=== PATIENT | male | born 1955 | race African-American/Black ===

== ENCOUNTER 2017-07-26 09:52 | Outpatient (CLI) | payer MEDICARE, MEDICAID ==
[2017-07-26] MEDS ORDERED: Iopamidol 370 76% 100 ML VIAL ONE (16:55)
--- NOTE | 2017-07-26 17:00 | CT ---
EXAM: ABDOMEN CT WITH CONTRAST PELVIC CT WITH CONTRAST 07/26/17 HISTORY: Colostomy care. COMPARISON: 03/12/16. TECHNIQUE: An abdomen and pelvic CT are performed with IV and enteric contrast. Coronal reformatted images are s ubmitted for interpretation. FINDINGS: Persistent opacification in the right lung base. The largest opacity measures 1.7 x 2.4 cm. Small aura ateral pleural effusions. Heart size is normal. No significant pericardial fluid. Descending thoracic aorta and abdominal aorta have a normal caliber. No periaortic fat stranding. Intra and extrahepatic portal vein is patent. Gallbladder is unremarkable. Symmetric attenuation of the psoas muscles. Liver, spleen, pancreas and adrenal glands have appropriate enhancement. There are nonspecific mildly enlarged periaortic and aortocaval lymph nodes. These lymph nodes are si milar to the previous examination. No gastrohepatic, retrocrural or periportal lymph adenopathy. No mesenteric mass, lymphadenopathy, free air or free fluid. There is a left lower quadrant colostomy . There is an associated parastomal hernia of mesenteric fat and lymph nodes. No associated bowel obs truction. Multiple normal caliber small bowel loops. Normal ileocecal junction. Appendix has a slight ly irregular appearance with minimal periappendiceal fat stranding. Findings are nonspecific for appe ndicitis. The possibility of an appendiceal tumor such as mucocele cannot be completely excluded. Cor relate clinically. There are a few scattered mildly enlarged right lower quadrant mesenteric lymph no dolores. [employer] Outreach Worker lymph node measures 1.5 x 0.7 cm. Schafer's pouch demonstrates diverticulosis. Symmetric enhancement of the kidneys. No obstructive uropathy. PELVIC CT: Enlarged prostate gland. Urinary bladder is unremarkable. No pelvic mass, lymphadenopathy, free air o r free fluid. There is nonspecific mildly enlarged bilateral inguinal lymph nodes. These lymph nodes still have a preserved fatty hilum. Small amount of fluid in the visualized left hemiscrotum. There are no lytic or blastic lesions in the osseous structures. IMPRESSION: 1. Chronic changes in the right lung base. Left sided colostomy with parastomal hernia mesenteri c fat. There are associated lymph nodes. 2. No evidence of bowel obstruction. 3. Slightly irregular appearing appendix without definite inflammatory change. The possibility o f an appendiceal tumor such as mucocele cannot be completely excluded. Correlate clinically. 4. Scattered diverticula in the abdomen and pelvis. Correlate for possible infectious, inflammat ory processes versus other malignant etiologies. Code T POS: [facility]
== END 2017-07-26 09:53 | disposition home or self-care (01) ==
LOC: CT 09:52
PROVIDERS: ATTEND Specialist
DX: Z48.815 Encounter for surgical aftercare following surgery on the digestive system (principal); J98.4 Other disorders of lung; K43.5 Parastomal hernia without obstruction or gangrene; K57.90 Diverticulosis of intestine, part unspecified, without perforation or abscess without bleeding; Z93.3 Colostomy status
CPT/HCPCS: 74177; 82565

== ENCOUNTER 2017-08-19 12:13 | Outpatient (CLI) | payer MEDICARE, MEDICAID ==
[2017-08-19 13:48] LABS: Hemoglobin 14.1 g/dL (14.0-18.0); Mean Corpuscular HGB CONC 32.5 g/dL (32.0-36.0); Mean Corpuscular Hemoglobin 30.5 pg (27.0-31.0); Mean Corpuscular Volume 93.8 fl (80.0-94.0); Mean Platelet Volume 7.7 fL (7.4-10.4); Platelet Count 172 thou/uL (130-400); RBC Distribution Width 14.2 % (11.5-14.5); Red Blood Cell (RBC) Count 4.64 mill/uL (4.70-6.10); White Blood Cell (WBC) Count 4.2 thou/uL (4.8-10.8)
[2017-08-19 13:50] LABS: INR-International Normal Ratio 1.1; PTT 31.9 SEC (22.9-36.1); Prothrombin Time 14.1 SEC (12.0-14.7)
[2017-08-19 14:18] LABS: Anion Gap 12 mmol/L (10-20); BUN (Urea Nitrogen) 17 mg/dL (8.4-25.7); Calc. Creatinine Clearance 0 mL/min (70-130); Calcium 10.8 mg/dL (7.8-10.44); Carbon Dioxide 28 mmol/L (23-31); Chloride 100 mmol/L (98-107); Estimated GFR-MDRD 82; Glucose 69 mg/dL (80-115); Potassium 3.9 mmol/L (3.5-5.1); Sodium 136 mmol/L (136-145)
[2017-08-19 14:19] LABS: Bilirubin Negative (Negative); Blood, Urine Negative (Negative); Clarity CLEAR (Clear); Glucose, Urine (Dipstick) 100 mg/dL (Negative); Leukocyte Negative (Negative); Nitrite Negative (Negative); Protein, Urine (Dipstick) Negative (Neg-Trace); Specific Gravity, Urine 1.017 (1.002-1.036); Urobilinogen 0.2 mg/dL (0.2-1.0); pH, Urine 5.5 (5.0-9.0)
[2017-08-19 14:23] LABS: Bacteria/HPF None Seen HPF (None Seen); Hyaline Casts/LPF 0-3 HYALINE CAST LPF (0-3 Hyaline); RBC/HPF 0-3 HPF (0-3); Squamous Epithelial None Seen HPF (0-3); WBC/HPF 0-3 HPF (0-3)
--- NOTE | 2017-08-20 23:40 | EKG ---
Test Reason : Blood Pressure : / mmHG Vent. Rate : 083 BPM Atrial Rate : 083 BPM P-R Int : 156 ms QRS Dur : 092 ms QT Int : 376 ms P-R-T Axes : 062 023 039 degrees QTc Int : 441 ms Normal sinus rhythm Nonspecific T wave abnormality Abnormal ECG When compared with ECG of 27-SEP-2016 08:11, Vent. rate has increased BY 32 BPM T wave inversion no longer evident in Anterior leads Confirmed by Petr ANDRE ([id number]) on 08/20/2017 11:39:34 PM Referred By: JOSHUA Confirmed By:Petr ANDRE
== END 2017-08-19 12:14 | disposition home or self-care (01) ==
LOC: LABBT 12:13
PROVIDERS: ATTEND Urology
DX: Z01.810 Encounter for preprocedural cardiovascular examination (principal); Z01.812 Encounter for preprocedural laboratory examination; R97.20 Elevated prostate specific antigen [PSA]
CPT/HCPCS: 80048; 81001; 84153; 85027; 85610; 85730; 87086; 93005; 93010

== ENCOUNTER 2017-08-29 06:30 | Day surgery (SDC) | payer MEDICARE, MEDICAID ==
[2017-08-19 12:31] VITALS: BMI 26.9
[2017-08-29] MEDS ORDERED: Ciprofloxacin 500 MG TAB PO SCH (07:30)
[2017-08-29] MEDS ORDERED: cefTRIAXone\\ROCEPHIN 1 GM, Syringe 0.4 ML in Sterile Water 9.6 ML SLOW IVP SCH (08:45)
[2017-08-29] MEDS ORDERED: Fentanyl 100 MCG/2 ML VIAL ONE ×2 (09:11)
[2017-08-29] MEDS ORDERED: Bupivacaine 0.25% HCL 30 ML VIAL ONE (09:59)
[2017-08-29] MEDS ORDERED: Propofol 200 MG/20 ML VIAL ONE (14:39)
--- NOTE | 2017-08-30 11:43 | OP ---
DATE OF PROCEDURE: 08/29/2017 SURGEON: Tray Hendrickson M.D. SERVICE: Urology. PREOPERATIVE DIAGNOSIS: Elevated PSA. POSTOPERATIVE DIAGNOSIS: Elevated PSA. PROCEDURE PERFORMED: Transperineal prostate biopsy. INDICATIONS FOR PROCEDURE: Mr. Womack is a 62-year-old black male, who had a very low LAR, possible A CT with extremely small rectal stump. He still have his prostate, but his PSA has been rising signif icantly. His PSA had initially been at 16 and then 25. I recommended a biopsy, but due to inability to reach his prostate to the rectum and significant sensitivity and tenderness in his rectum. I sta jaden it would be better to try and do a transperineal biopsy in the operating room from outside entire . I discussed the procedure with the patient and he has agreed to proceed forward. DESCRIPTION OF PROCEDURE: After identification of armband and verification of consent, the patient w as brought back to the operating room where he underwent general anesthesia with an LMA. He is place d in dorsal lithotomy position and prepped and draped in usual sterile fashion. Attempts at placing the rectal ultrasound probe through the rectal stump to image the prostate was unsuccessful. The rec ananda stump was too small, and I did not want to exert any excessive force as it could tear the rectal stump. Therefore, we elected to go with a transperineal biopsy. A flat ultrasound transducer was us ed on the perineum and the bulbar urethra was identified. This was tracked back into the prostate co uld be visualized. The prostate did exhibited extensive calcification, but there were no hypoechoic lesions that were immediately identifiable. Using a prostate biopsy gun and guiding it with the fing ers directly over the flat ultrasound probe, the ultrasound needle was seemed to go into the prostate , and cores were taken from both the left and right side, approximately three from the left and four from the right. It was difficult to ascertain exactly where the biopsies were being taken from as ag ain this was not done transrectally, but the ultrasound and biopsy were both done transperineally. A good cores were obtained. There was minimal bleeding and a dressing was applied to the patient's pe rineum. Afterwards, the patient was then taken out of lithotomy and awakened and taken to PACU for r ecovery in stable condition. COMPLICATIONS: None. ESTIMATED BLOOD LOSS: Minimal. RETAINED TUBES OR DRAINS: None. SPECIMENS: Core prostate biopsies x7. DISPOSITION: The patient will be discharged home and follow up with me in approximately a week to go over his biopsy results. His care will then be handled on an outpatient basis.
== END 2017-08-29 12:35 | disposition home or self-care (01) ==
LOC: SDC 06:30
PROVIDERS: ATTEND Urology
PROC: 0VB03ZX Excision of Prostate, Percutaneous Approach, Diagnostic (ICD-10-PCS; principal; 2017-08-29)
DX: C61 Malignant neoplasm of prostate (principal); N41.1 Chronic prostatitis; F32.9 Major depressive disorder, single episode, unspecified; G40.909 Epilepsy, unspecified, not intractable, without status epilepticus; E11.9 Type 2 diabetes mellitus without complications; I10 Essential (primary) hypertension; E78.5 Hyperlipidemia, unspecified; R97.20 Elevated prostate specific antigen [PSA]; Z79.84 Long term (current) use of oral hypoglycemic drugs; Z79.899 Other long term (current) drug therapy; Z93.3 Colostomy status; Z98.890 Other specified postprocedural states
CPT/HCPCS: 88305; A4216; J0696; J2704; J3010; S0020

== ENCOUNTER 2017-10-10 09:36 | Outpatient (CLI) | payer MEDICARE, MEDICAID ==
--- NOTE | 2017-10-10 13:42 | NM ---
WHOLE BODY BONE SCAN: Date: 10/10/17 HISTORY: Prostate cancer. RADIOPHARMACEUTICAL: 33 mCi technetium-99m MDP injected intravenously. FINDINGS: Increased uptake in the shoulders, elbows, wrists knees, and feet are consistent with degenerative ch anges. There is focal increased uptake in the lower shaft of the left tibia. No other abnormal areas of tracer localization are seen. Tracer excretion through the kidneys is within normal limits. IMPRESSION: Focally increased uptake in the left tibial shaft. Correlation with plain radiographs is recommended. POS: [facility]
== END 2017-10-10 09:37 | disposition home or self-care (01) ==
LOC: NM 09:36
PROVIDERS: ATTEND Urology
DX: C61 Malignant neoplasm of prostate (principal)
CPT/HCPCS: 78306; A9503

== ENCOUNTER 2017-10-29 08:54 | Outpatient (CLI) | payer MEDICARE, MEDICAID ==
[2017-10-29 10:14] LABS: Estimated GFR-MDRD - POC Greater than 90
--- NOTE | 2017-10-29 12:13 | MRI ---
MRI PROSTATE WITH AND WITHOUT CONTRAST: Date: 10/29/17 COMPARISON: None. HISTORY: Prostate cancer. TECHNIQUE: Multiplanar, multisequence MR images were obtained of the prostate without and with IV contrast. FINDINGS: There is hypertrophy of the central gland, consistent with BPH. The peripheral zone is heterogeneous in appearance with areas of high T2 signal and low T1 signal. No definite mass-like area of low T2 si gnal is seen within the peripheral zone of the prostate. The capsule of the prostate is irregular stefano ng the posterolateral aspects, right greater than left. There is a 1.3 cm area of possible disruption of the capsule near the neurovascular bundle on the right. No abnormal low T2 signal is seen in this location and there is no evidence of restricted diffusion or low signal on the ADC map in this locat ion. No obvious focal mass is seen within the central gland. No abnormal signal is seen within the prostat e on the diffusion sequence or ADC map. Seminal vesicles appear intact. A small amount of free fluid is seen in the pelvis. No pelvic adenopa thy is seen. There are scattered diverticula in the colon. IMPRESSION: 1. PI-RADS Category 1 - Very low likelihood that a clinically significant cancer is present. 2. Nonspecific apparent disruption of the posterior aspect of the prostate capsule. This is immediat trupti adjacent to the neurovascular bundle on the right. POS: [facility]
== END 2017-10-29 08:55 | disposition home or self-care (01) ==
LOC: TBSIIMAG 08:54
PROVIDERS: ATTEND Urology
DX: C61 Malignant neoplasm of prostate (principal)
CPT/HCPCS: 72197; 82565

== ENCOUNTER 2017-10-29 11:25 | Outpatient (CLI) | payer MEDICARE, MEDICAID ==
--- NOTE | 2017-10-29 13:05 | RAD ---
2 VIEWS LEFT TIBIA AND FIBULA: Date: 10/29/17 HISTORY: Prostate cancer. COMPARISON: None. FINDINGS: Remote injury involving the distal fibula diaphysis and mid tibia diaphysis. At least four separate s crews are noted in the tibia. No perihardware lucency. No lytic or blastic lesions. No obvious pathol ogic fractures. IMPRESSION: Chronic changes. POS: [facility]
== END 2017-10-29 11:26 | disposition home or self-care (01) ==
LOC: RAD 11:25
PROVIDERS: ATTEND Family Medicine
DX: C61 Malignant neoplasm of prostate (principal)

== ENCOUNTER 2017-12-09 14:08 | Outpatient (CLI) | payer MEDICARE, MEDICAID | END 2017-12-09 14:09 | disposition home or self-care (01) | LOC: BICRAD 14:08 | PROVIDERS: ATTEND Internal Medicine Pulmonary Disease | DX: R06.00 Dyspnea, unspecified (principal) | CPT/HCPCS: 71046 ==

== ENCOUNTER 2018-07-09 10:37 | Outpatient (CLI) | payer MEDICARE, MEDICAID ==
--- NOTE | 2018-07-09 11:31 | RAD ---
CHEST TWO VIEWS: HISTORY: Dyspnea. COMPARISON: 12/09/2017 FINDINGS: The cardiac silhouette and pulmonary vasculature are unremarkable. Coarsened interstitial prominence throughout each lower lobe, right greater than left, is similar in appearance to the previous exam. No lobar consolidation, pneumothorax, or pleural fluid. IMPRESSION: Interstitial scarring and other chronic type findings appear stable. POS: [facility]
== END 2018-07-09 10:38 | disposition home or self-care (01) ==
LOC: RAD 10:37
PROVIDERS: ATTEND Internal Medicine Pulmonary Disease
DX: R06.00 Dyspnea, unspecified (principal); J98.4 Other disorders of lung
CPT/HCPCS: 71046

== ENCOUNTER 2018-12-09 07:23 | Inpatient (IN) | payer MEDICARE, MEDICAID ==
[2018-12-09] MEDS ORDERED: Ketorolac Tromethamine 30 MG/ML VIAL ONE (08:29)
[2018-12-09] MEDS ORDERED: Sodium Chloride 0.9% 100 ML ONE (08:30)
[2018-12-09] MEDS ORDERED: cefOXitin 2 GM VIAL ONE (08:30)
[2018-12-09 09:24] LABS: Anion Gap 12 mmol/L (10-20); BUN (Urea Nitrogen) 11 mg/dL (8.4-25.7); Calc. Creatinine Clearance 65 mL/min (70-130); Calcium 10.6 mg/dL (7.8-10.44); Carbon Dioxide 26 mmol/L (23-31); Chloride 102 mmol/L (98-107); Estimated GFR-MDRD 68; Glucose 87 mg/dL (80-115); Potassium 4.3 mmol/L (3.5-5.1); Sodium 136 mmol/L (136-145)
[2018-12-09 09:37] LABS: Band 4 % (5-11); Eosinophils 5 % (0-10); Hemoglobin 13.6 g/dL (14.0-18.0); Lymphocytes 21 % (21-51); MDiff Complete? YES; Mean Corpuscular HGB CONC 34.5 g/dL (32.0-36.0); Mean Corpuscular Hemoglobin 31.7 pg (27.0-31.0); Mean Corpuscular Volume 91.8 fL (78.0-98.0); Mean Platelet Volume 7.4 fL (7.4-10.4); Monocytes 9 % (0-10); Neutrophil 60 % (42-75); Platelet Count 150 thou/uL (130-400); RBC Distribution Width 13.3 % (11.5-14.5); RBC Morphology Normal; White Blood Cell (WBC) Count 4.2 thou/uL (4.8-10.8)
[2018-12-09] MEDS ORDERED: Bupivacaine/Epinephrine 0.25% 30 ML VIAL ONE (09:46)
[2018-12-09] MEDS ORDERED: Lidocaine 2% Jelly 5 ML TUBE ONE (09:49)
[2018-12-09] MEDS ORDERED: Fentanyl 100 MCG/2 ML VIAL ONE ×3 (09:49→14:28)
[2018-12-09] MEDS ORDERED: Phenylephrine HCL 10 MG/ML VIAL ONE (10:31)
[2018-12-09] MEDS ORDERED: Ondansetron PF 4 MG/2 ML Vial ONE (11:16)
[2018-12-09] MEDS ORDERED: PROPOFOL 200 MG/20 ML VIAL ONE (11:16)
[2018-12-09] MEDS ORDERED: Rocuronium Bromide 10 MG/ML (10ML VIAL) ONE (11:16)
[2018-12-09] MEDS ORDERED: ePHEDrine 50 MG/ML VIAL ONE (11:16)
[2018-12-09] MEDS ORDERED: Glycopyrrolate 0.2 MG/ML 5 ML SYRINGE ONE (11:16)
[2018-12-09] MEDS ORDERED: PHENYLEPHRINE-NS 100 MCG/ML 10 ML SYRINGE ONE (11:16)
[2018-12-09] MEDS ORDERED: Lidocaine 1% PF 5 ML VIAL ONE (11:16)
[2018-12-09] MEDS ORDERED: Ondansetron HCl/PF 4 MG/2 ML Vial IVP PRN (13:08)
[2018-12-09] MEDS ORDERED: Promethazine HCl 25 MG/ML VIAL SLOW IVP PRN (13:08)
[2018-12-09] MEDS ORDERED: Promethazine HCl 25 MG/ML VIAL IM PRN ×2 (13:08→14:16)
[2018-12-09] MEDS ORDERED: Insulin Regular 300 UNITS/3 ML VIAL SC PRN (14:16)
[2018-12-09] MEDS ORDERED: Morphine 2 MG/ML SYRINGE SLOW IVP PRN (14:16)
[2018-12-09] MEDS ORDERED: Ondansetron PF 4 MG/2 ML Vial IVP PRN (14:16)
[2018-12-09] MEDS ORDERED: hydrALAZINE 20 MG/ML VIAL SLOW IVP PRN (14:16)
[2018-12-09] MEDS ORDERED: Morphine 4 MG/ML VIAL SLOW IVP PRN (14:16)
[2018-12-09 15:56] VITALS: BMI 25.8
--- NOTE | 2018-12-09 16:52 | EKG ---
Test Reason : PREOP Blood Pressure : / mmHG Vent. Rate : 091 BPM Atrial Rate : 091 BPM P-R Int : 154 ms QRS Dur : 094 ms QT Int : 284 ms P-R-T Axes : 061 -16 057 degrees QTc Int : 349 ms Normal sinus rhythm Nonspecific T wave abnormality Abnormal ECG When compared with ECG of 19-AUG-2017 13:23, QT has shortened Confirmed by DR. Joe ZAMUDIO ([id number]) on 12/09/2018 4:52:28 PM Referred By: CALOS Confirmed By:DR. Joe ZAMUDIO
[2018-12-09] MEDS: Acetaminophen 1,000 MG in Premix Bag 1 BAG IVPB SCH (17:56)
[2018-12-09] MEDS: Sodium Chloride 0.9% 1,000 ML IV SCH ×2 (17:56→20:03)
[2018-12-09] MEDS: Ketorolac Tromethamine 30 MG/ML VIAL IVP SCH (17:57)
[2018-12-09] MEDS: Famotidine 20 MG TAB PO SCH (20:04)
[2018-12-09] MEDS: Famotidine/PF 20 mg/2ml Vial SLOW IVP SCH (20:05)
[2018-12-10] MEDS: Acetaminophen 1,000 MG in Premix Bag 1 BAG IVPB SCH ×3 (00:01→13:03)
[2018-12-10] MEDS: Ketorolac Tromethamine 30 MG/ML VIAL IVP SCH ×5 (00:01→23:25)
--- NOTE | 2018-12-10 03:16 | OP ---
DATE OF PROCEDURE: 12/09/2018 PREOPERATIVE DIAGNOSIS: Large symptomatic parastomal hernia. POSTOPERATIVE DIAGNOSIS: Large symptomatic parastomal hernia. OPERATION PERFORMED: Laparoscopic repair of parastomal hernia with Sugarbaker technique using Ventralex mesh and Parietex mesh patch. ANESTHESIA: General endotracheal. 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 He had a colostomy created at some point in the past by an unknown physician in an unknown location for unknown reasons. He appears to have severe scarring of his rectal area and it is suspected that he has no residual rectal muscular function. For this reason, I have recommended against colostomy reversal. The patient has stated, however, that he has significant pain associated with his parastomal hernia and for this reason, he was taken to the operating room at this time for repair. DESCRIPTION OF PROCEDURE: Informed consent was obtained. The patient was taken to the operating room, where general endotracheal anesthesia was obtained with the patient in supine position. A sterile occlusive dressing was applied over the colostomy. Abdomen was prepped with ChloraPrep and draped in sterile fashion. Local anesthetic was infiltrated using 0.25% Marcaine with epinephrine, and a 5-mm right mid abdominal incision was created, through which a Veress needle was passed into the peritoneal cavity and pneumoperitoneum was established using carbon dioxide up to a pressure of 15 mmHg. 5-mm trocar port was passed through the same incision. Laparoscopic camera was passed through this port. Under direct vision, two additional ports were placed including a 12-mm right upper quadrant port and a 5-mm right lower quadrant port. Attention was turned to the intraabdominal contents. There were significant omental adhesions to the anterior abdominal wall. He had had a prior low midline abdominal incision. These adhesions were all meticulously taken down with LigaSure device. Dissection was carried over to the colostomy. There were significant omental adhesions to the abdominal wall near the colostomy and to the colon itself. There were adhesions inferior to this in the left lower quadrant as well. I spent a long period of time meticulously mobilizing all adhesions and clearing the anterior abdominal wall on all sides of the colostomy. I dissected all omentum off the colon, such that all that was proceeding through the colostomy opening was the colon and its mesentery. Hemostasis was meticulous during this. There was a large obvious hernia defect that was primarily inferior to the colon protruding through it. I closed the defect using four interrupted sutures of 0 Ethibond placed with the GraNee needle. This provided excellent closure of the defect while still allowing ample room for the colon and its mesentery. I then obtained an 11-cm Ventralex mesh patch and a 6-cm Parietex mesh patch. I trimmed all unnecessary mesh material away from the backside of the Parietex and sewed it to one edge of the Ventralex, such that the coated portion of the Parietex was on the anterior aspect of the mesh patch on the same side as the uncoated polypropylene. The mesh was then passed into the abdominal cavity. I positioned the coated Parietex against the colon and then secured the mesh to the anterior abdominal wall using the SecureStrap device on three sides, leaving the lateral aspect open for the colon to proceed through. After fixing the mesh ideally with the SecureStrap device, I fixed the mesh in place with 3 interrupted full-thickness transfascial sutures of 0 Ethibond. One of these was medial to the ostomy, one was superior, and one was inferior. Again, the lateral aspect was left open for the colon to proceed through. The fascial defect at the 12-mm port site was closed with 0 Vicryl suture using GraNee needle. The abdominal contents were inspected one final time for hemostasis. All ports and instruments were removed under direct vision. Pneumoperitoneum was carefully evacuated. 0.25% Marcaine with epinephrine was infiltrated at each port site, and skin edges were approximated with 4-0 Monocryl subcuticular suture. Dermabond was placed externally. Colostomy appliance was reapplied. There were no complications. The patient tolerated the procedure well and was taken to recovery room in stable condition. Job ID: [id number]
[2018-12-10] MEDS: Sodium Chloride 0.9% 1,000 ML IV SCH ×3 (06:16→16:22)
[2018-12-10 06:54] LABS: Hemoglobin 11.8 g/dL (14.0-18.0); Mean Corpuscular HGB CONC 33.7 g/dL (32.0-36.0); Mean Corpuscular Hemoglobin 31.1 pg (27.0-31.0); Mean Corpuscular Volume 92.4 fL (78.0-98.0); Mean Platelet Volume 7.6 fL (7.4-10.4); Platelet Count 127 thou/uL (130-400); RBC Distribution Width 13.4 % (11.5-14.5); Red Blood Cell (RBC) Count 3.78 mill/uL (4.70-6.10); White Blood Cell (WBC) Count 3.9 thou/uL (4.8-10.8)
[2018-12-10 07:19] LABS: Anion Gap 9 mmol/L (10-20); BUN (Urea Nitrogen) 9 mg/dL (8.4-25.7); Calc. Creatinine Clearance 95 mL/min (70-130); Carbon Dioxide 23 mmol/L (23-31); Chloride 107 mmol/L (98-107); Estimated GFR-MDRD Greater than 90; Glucose 97 mg/dL (80-115); Sodium 135 mmol/L (136-145)
[2018-12-10 08:03] LABS: Band 5 % (5-11); Eosinophils 3 % (0-10); Lymphocytes 8 % (21-51); MDiff Complete? YES; Monocytes 11 % (0-10); Neutrophil 70 % (42-75); Platelet Morphology Comment Appears Decreased; Polychromasia SLIGHT = 2-3 cells (100X) (0-2/hpf); Reactive Lymphocytes 2 % (0-10); Small Platelets SLIGHT
[2018-12-10] MEDS: Enoxaparin Sodium 40 MG/0.4 ML SYRINGE SC SCH (08:38)
[2018-12-10] MEDS: Famotidine 20 MG TAB PO SCH ×2 (08:38→20:53)
[2018-12-10] MEDS ORDERED: Prevnar 13-Val Conj/PF 0.5 ML SYRINGE IM ONE (09:00)
[2018-12-10] MEDS: Famotidine/PF 20 mg/2ml Vial SLOW IVP SCH ×2 (10:07→20:54)
[2018-12-10] MEDS ORDERED: Fluticasone Propionate Nasal Spray 16 gm Bottle NASAL PRN (14:30)
[2018-12-10] MEDS ORDERED: HYDROcodone/Acetaminophen 7.5/325 mg Tablet PO PRN ×2 (18:00)
[2018-12-10] MEDS: metFORMIN 500 MG TAB PO SCH (20:53)
[2018-12-10] MEDS ORDERED: Atorvastatin Calcium 10 MG TAB PO SCH (21:00)
[2018-12-10] MEDS ORDERED: Divalproex Sodium DR 500 MG TAB PO SCH (21:00)
[2018-12-10] MEDS ORDERED: ILOPERIDONE 12 MG PO SCH (21:00)
[2018-12-10] MEDS ORDERED: Loratadine 10 MG TAB PO SCH (21:00)
[2018-12-10] MEDS ORDERED: traZODone HCl 150 MG TAB PO SCH (21:00)
[2018-12-11] MEDS: Ketorolac Tromethamine 30 MG/ML VIAL IVP SCH ×2 (06:33→11:45)
--- NOTE | 2018-12-11 06:35 | PRG ---
DATE OF SERVICE: 12/10/2018 SUBJECTIVE: Mr. Womack is postoperative day #1 from laparoscopic repair of parastomal hernia. He has no complaints. He is ambulating well. His primary complaint is that he had been hungry. He has had liquid stool from his ostomy and has urinated well today. OBJECTIVE: VITAL SIGNS: On examination, he is afebrile. Pulse is 74 and regular, blood pressure 157/80. LUNGS: Clear to auscultation. CARDIAC: Regular rate and rhythm. ABDOMEN: Soft with normoactive bowel sounds. Laparoscopic incisions are healing nicely. Ostomy has liquid stool output. LABORATORY DATA: CBC is unremarkable with a hemoglobin of 11.8, white blood cell count of 3.8. His chemistry panel revealed no significant abnormalities. ASSESSMENT: The patient is doing well following laparoscopic repair of his parastomal hernia. PLAN: Plan is to advance him to a solid diet. If he appears to be doing well with this tomorrow, then I would anticipate discharge at that time. Job ID: [id number]
[2018-12-11] MEDS: Sodium Chloride 0.9% 1,000 ML IV SCH ×2 (07:36→11:45)
[2018-12-11] MEDS: metFORMIN 500 MG TAB PO SCH (08:46)
[2018-12-11] MEDS: Famotidine 20 MG TAB PO SCH (08:47)
[2018-12-11] MEDS: Enoxaparin Sodium 40 MG/0.4 ML SYRINGE SC SCH (08:48)
[2018-12-11] MEDS: Famotidine/PF 20 mg/2ml Vial SLOW IVP SCH (08:49)
[2018-12-11] MEDS ORDERED: Amlodipine 5 MG TAB PO SCH (09:00)
[2018-12-11] MEDS ORDERED: Empagliflozin [Jardiance] 10 MG TAB PO SCH (09:00)
[2018-12-11] MEDS ORDERED: Lisinopril/Hydrochlorothiazide 20 mg/12.5 mg Tablet PO SCH (09:00)
[2018-12-11] MEDS ORDERED: Tamsulosin HCl 0.4 MG CAP PO SCH (09:00)
[2018-12-11 16:38] VITALS: BP 147/84; TEMP 98.4
[2018-12-17] MEDS ORDERED: Dulaglutide [Trulicity] 0.5 ML SC SCH (09:00)
== END 2018-12-11 17:46 | disposition home or self-care (01) | DRG 337 ==
LOC: SURG A 07:45
PROVIDERS: ADMIT Specialist; ATTEND Specialist
PROC: 0WUF4JZ Supplement Abdominal Wall with Synthetic Substitute, Percutaneous Endoscopic Approach (ICD-10-PCS; principal; 2018-12-09)
PROC: 0DNW4ZZ Release Peritoneum, Percutaneous Endoscopic Approach (ICD-10-PCS; 2018-12-09)
DX: K43.5 Parastomal hernia without obstruction or gangrene (principal); K66.0 Peritoneal adhesions (postprocedural) (postinfection)
CPT/HCPCS: 36415; 36416; 80048; 85025; 93005; 93010; C1781; J0131; J0694; J1885; J2001; J2270; J2370; J2405; J2704; J3010; J3490

== ENCOUNTER 2019-01-28 10:25 | Outpatient (CLI) | payer MEDICARE, MEDICAID ==
[2019-01-28] MEDS ORDERED: Sodium Chloride 0.9% 15 ML NEB ONE (11:11)
== END 2019-01-28 10:26 | disposition home or self-care (01) ==
LOC: WCC 10:25
PROVIDERS: ATTEND Family Medicine
DX: E11.9 Type 2 diabetes mellitus without complications (principal); Z93.3 Colostomy status
CPT/HCPCS: 36416; A4218

== ENCOUNTER 2023-04-02 08:27 | Outpatient (CLI) | payer MEDICARE, MEDICAID | END 2023-04-02 08:28 | disposition home or self-care (01) | LOC: RAD 08:27 | PROVIDERS: ATTEND Internal Medicine Critical Care Medicine | DX: R06.00 Dyspnea, unspecified (principal) | CPT/HCPCS: 71046 ==

== ENCOUNTER 2024-07-20 08:21 | Outpatient (CLI) | payer MEDICARE, MEDICAID | END 2024-07-20 08:22 | disposition home or self-care (01) | LOC: BICRAD 08:21 | PROVIDERS: ATTEND Internal Medicine Critical Care Medicine | DX: R06.00 Dyspnea, unspecified (principal); Z00.00 Encounter for general adult medical examination without abnormal findings; Z11.59 Encounter for screening for other viral diseases; E11.9 Type 2 diabetes mellitus without complications | CPT/HCPCS: 36415; 71046; 80048; 80061; 82043; 85025; 86803 ==

== ENCOUNTER 2024-07-25 07:51 | Inpatient (IN) | payer MEDICARE, MEDICAID ==
[2024-07-25] MEDS ORDERED: Labetalol HCl 100 MG/20 ML VIAL ONE (09:07)
[2024-07-25] MEDS ORDERED: Potassium Bicarbonate/Cit Ac 20 MEQ TAB ONE (10:14)
[2024-07-25 10:42] LABS: Troponin I 0.164 ng/mL (< 0.028)
[2024-07-25] MEDS ORDERED: Nitroglycerin 0.4 MG TAB (25 Tab Bottle) SL PRN (11:45)
[2024-07-25] MEDS ORDERED: Dextrose 5% in Water 1,000 ML IV PRN (11:46)
[2024-07-25] MEDS ORDERED: Dextrose 50% Abboject 50 ML SYRINGE SLOW IVP PRN (11:46)
[2024-07-25] MEDS ORDERED: Glucagon 1 MG/ML KIT IM PRN (11:46)
[2024-07-25] MEDS ORDERED: Ipratropium/Albuterol 3 ML NEB NEB PRN (11:50)
[2024-07-25] MEDS ORDERED: hydrALAZINE 20 MG/ML VIAL SLOW IVP PRN (11:50)
[2024-07-25 12:47] LABS: Lactic Acid 1.36 mmol/L (0.5-2.2)
[2024-07-25] MEDS ORDERED: Aspirin Chewable 81 MG TAB ONE (12:47)
[2024-07-25] MEDS ORDERED: Ipratropium/Albuterol 3 ML NEB ONE (12:47)
[2024-07-25] MEDS ORDERED: cefTRIAXone (ROCEPHIN) 2 GM VIAL ONE (12:47)
[2024-07-25] MEDS ORDERED: Amlodipine 5 MG TAB ONE (12:51)
[2024-07-25] MEDS ORDERED: Azithromycin 500 MG VIAL ONE (12:51)
[2024-07-25] MEDS: Amlodipine 5 MG TAB PO SCH ×2 (12:58→21:20)
[2024-07-25] MEDS: cefTRIAXone\\ROCEPHIN 2 GM in Sodium Chloride 0.9% 100 ML IVPB SCH (12:59)
[2024-07-25] MEDS: Aspirin 81 mg Enteric Coated Tablet PO SCH (12:59)
[2024-07-25] MEDS: Ipratropium/Albuterol 3 ML NEB NEB SCH (13:32)
[2024-07-25] MEDS: Azithromycin 500 MG in Sodium Chloride 0.9% 250 ML 250 ML IVPB SCH (13:34)
[2024-07-25] MEDS: metroNIDAZOLE 500 MG TAB PO SCH (15:00)
[2024-07-25] MEDS: Budesonide 0.5 MG/2 ML NEB INH SCH (18:47)
[2024-07-25 21:18] VITALS: BMI 28.3
[2024-07-25] MEDS: Tamsulosin HCl 0.4 MG CAP PO SCH (21:25)
[2024-07-25] MEDS: Brimonidine Tartrate 0.2% Ophth Soln 5 ml Bottle EA EYE SCH (22:28)
[2024-07-25] MEDS: guaiFENesin/Codeine 200 mg/20 mg 10 ml Cup PO PRN (23:33)
[2024-07-25 23:56] LABS: Influenza A by NAA Not Detected (NotDetected); Influenza B by NAA Not Detected (NotDetected); SARS-CoV-2 NAA Rapid Test Not Detected (NotDetected)
[2024-07-26 05:24] LABS: Hematocrit 32.8 % (42.0-52.0); Hemoglobin 10.9 g/dL (14.0-18.0); Mean Corpuscular HGB CONC 33.2 g/dL (32.0-36.0); Mean Corpuscular Hemoglobin 30.4 pg (27.0-31.0); Mean Corpuscular Volume 91.6 fL (78.0-98.0); Mean Platelet Volume 10.9 fL (7.4-10.4); Platelet Count 115 10x3/uL (130-400); RBC Distribution Width 14.8 % (11.5-14.5); Red Blood Cell (RBC) Count 3.58 mill/uL (4.70-6.10)
[2024-07-26 05:26] LABS: INR-International Normal Ratio 1.4
[2024-07-26 05:27] LABS: PTT 46.9 sec (22.9-36.1)
[2024-07-26 05:44] LABS: Band 36 % (5-11); Eosinophils 1 % (0-10); Lymphocytes 8 % (21-51); Metamyelocyte 1 % (0-0); Monocytes 11 % (0-10); Neutrophil 43 % (42-75); Platelet Adequacy Comment Platelets Decreased; Polychromasia SLIGHT = 2-3 cells HPF (0-2)
[2024-07-26 06:06] LABS: ALT (SGPT) 17 U/L (8-55); AST (SGOT) 57 U/L (5-34); Albumin 1.8 g/dL (3.4-4.8); Alkaline Phosphatase 55 U/L (40-110); Anion Gap 9 mmol/L (10-20); BUN (Urea Nitrogen) 25 mg/dL (8.4-25.7); Bilirubin, Total 0.2 mg/dL (0.2-1.2); Calc. Creatinine Clearance 68 mL/min (70-130); Calcium 9.2 mg/dL (7.8-10.44); Carbon Dioxide 21 mmol/L (23-31); Chloride 111 mmol/L (98-107); Estimated GFR 64; Globulin 4.4 g/dL (2.4-3.5); Glucose 117 mg/dL (80-115); Magnesium 1.7 mg/dL (1.6-2.6); Phosphorus 2.7 mg/dL (2.3-4.7); Potassium 3.2 mmol/L (3.5-5.1); Protein, Total 6.2 g/dL (5.8-8.1); Sodium 138 mmol/L (136-145)
[2024-07-26 06:07] LABS: Troponin I 0.047 ng/mL (< 0.028)
[2024-07-26] MEDS ORDERED: Electrolyte Replacement Protocol 1 EACH FS SCH (08:48)
[2024-07-26] MEDS: Aspirin 81 mg Enteric Coated Tablet PO SCH (09:44)
[2024-07-26] MEDS: OLANZapine 5 MG TAB PO SCH (09:45)
[2024-07-26] MEDS: Enoxaparin 30 MG (0.3 mL) SYRINGE SC SCH (09:45)
[2024-07-26] MEDS: Magnesium 2 GM/50 ML(in water) 2 GM in Premix 1 BAG IVPB SCH (12:52)
[2024-07-26] MEDS: Potassium Chloride 20 MEQ TAB PO SCH (12:56)
[2024-07-26] MEDS ORDERED: Divalproex Sodium 500 MG ER.TAB PO SCH (21:00)
[2024-07-26] MEDS: Divalproex Sodium 500 MG ER.TAB PO SCH (21:37)
[2024-07-27 05:30] LABS: Hematocrit 31.9 % (42.0-52.0); Hemoglobin 10.3 g/dL (14.0-18.0); Mean Corpuscular HGB CONC 32.3 g/dL (32.0-36.0); Mean Corpuscular Hemoglobin 29.7 pg (27.0-31.0); Mean Corpuscular Volume 91.9 fL (78.0-98.0); Platelet Count 118 10x3/uL (130-400); RBC Distribution Width 15.1 % (11.5-14.5); Red Blood Cell (RBC) Count 3.47 mill/uL (4.70-6.10)
[2024-07-27 05:41] LABS: Anion Gap 10 mmol/L (10-20); BUN (Urea Nitrogen) 25 mg/dL (8.4-25.7); Calc. Creatinine Clearance 67 mL/min (70-130); Calcium 8.7 mg/dL (7.8-10.44); Carbon Dioxide 20 mmol/L (23-31); Chloride 110 mmol/L (98-107); Estimated GFR 63; Glucose 208 mg/dL (80-115); Magnesium 2.1 mg/dL (1.6-2.6); Potassium 3.4 mmol/L (3.5-5.1); Sodium 137 mmol/L (136-145)
[2024-07-27] MEDS: Insulin Regular, Human 100 UNIT/ML 10 ML VIAL SC PRN (06:20)
[2024-07-27 06:24] LABS: Band 36 % (5-11); Burr Cells MODERATE= 6-15 cells HPF (0-1); Lymphocytes 1 % (21-51); Macrocytosis SLIGHT = 6-15 cells HPF (0-5); Metamyelocyte 1 % (0-0); Monocytes 9 % (0-10); Neutrophil 53 % (42-75); Platelet Adequacy Comment Platelets Normal; Poikilocytosis MODERATE=16-30 cells HPF (0-5); Polychromasia SLIGHT = 2-3 cells HPF (0-2); Smudge Cells 9.9 %; Tear Drops SLIGHT = 2-5 cells HPF (0-1)
[2024-07-27] MEDS: Potassium Chloride 20 MEQ TAB PO SCH (08:17)
[2024-07-27] MEDS: Azithromycin 250 MG TAB PO SCH (11:55)
[2024-07-27] MEDS: Amlodipine 5 MG TAB PO SCH (20:52)
[2024-07-28 04:28] LABS: #Basophils 0.05 10x3/uL (0.0-0.2); %Basophils 0.9 % (0.0-1.0); %Eosinophils 1.9 % (0.0-10.0); %Lymphocytes 11.9 % (21.0-51.0); %Monocytes 15.9 % (0.0-10.0); %Neutrophils 68.1 % (42.0-75.0); Anion Gap 12 mmol/L (10-20); BUN (Urea Nitrogen) 17 mg/dL (8.4-25.7); Calc. Creatinine Clearance 75 mL/min (70-130); Calcium 9.2 mg/dL (7.8-10.44); Carbon Dioxide 21 mmol/L (23-31); Chloride 109 mmol/L (98-107); Estimated GFR 72; Glucose 129 mg/dL (80-115); Hematocrit 36.2 % (42.0-52.0); Hemoglobin 11.7 g/dL (14.0-18.0); Mean Corpuscular HGB CONC 32.3 g/dL (32.0-36.0); Mean Corpuscular Hemoglobin 30.7 pg (27.0-31.0); Mean Platelet Volume 9.9 fL (7.4-10.4); Platelet Count 138 10x3/uL (130-400); Red Blood Cell (RBC) Count 3.81 mill/uL (4.70-6.10); Sodium 138 mmol/L (136-145)
[2024-07-28] MEDS: Enoxaparin 40 MG (0.4 mL) SYRINGE SC SCH (07:41)
[2024-07-28] MEDS: Lisinopril 20 MG TAB PO SCH (08:56)
[2024-07-28] MEDS: Loratadine 10 MG TAB PO SCH (08:56)
[2024-07-28] MEDS ORDERED: Amlodipine 5 MG TAB PO SCH (09:00)
[2024-07-28] MEDS: Amlodipine 5 MG TAB PO SCH (09:07)
[2024-07-28] MEDS: Insulin Regular, Human 100 UNIT/ML 10 ML VIAL SC PRN (21:34)
[2024-07-29 09:00] LABS: Hematocrit 37.1 % (42.0-52.0); Hemoglobin 12.3 g/dL (14.0-18.0); Mean Corpuscular HGB CONC 33.2 g/dL (32.0-36.0); Mean Corpuscular Hemoglobin 29.6 pg (27.0-31.0); Mean Corpuscular Volume 89.4 fL (78.0-98.0); Mean Platelet Volume 9.9 fL (7.4-10.4); Platelet Count 176 10x3/uL (130-400); RBC Distribution Width 14.7 % (11.5-14.5); Red Blood Cell (RBC) Count 4.15 mill/uL (4.70-6.10)
[2024-07-29 09:14] LABS: Anion Gap 12 mmol/L (10-20); BUN (Urea Nitrogen) 14 mg/dL (8.4-25.7); Calc. Creatinine Clearance 92 mL/min (70-130); Calcium 9.5 mg/dL (7.8-10.44); Carbon Dioxide 27 mmol/L (23-31); Chloride 103 mmol/L (98-107); Estimated GFR 92; Glucose 150 mg/dL (80-115); Potassium 3.9 mmol/L (3.5-5.1); Sodium 138 mmol/L (136-145)
[2024-07-29] MEDS: Amlodipine 5 MG TAB PO SCH (09:19)
[2024-07-29 09:26] LABS: Band 3 % (5-11); Lymphocytes 10 % (21-51); Macrocytosis SLIGHT = 6-15 cells HPF (0-5); Monocytes 23 % (0-10); Neutrophil 64 % (42-75); Nucleated RBC (Manual Ct) 1 % (0); Platelet Adequacy Comment Platelets Normal; Polychromasia SLIGHT = 2-3 cells HPF (0-2); Reactive Lymphocytes 1 % (0-10)
[2024-07-30] MEDS: Carvedilol 6.25 MG TAB PO SCH (17:55)
[2024-07-30] MEDS: Amlodipine 5 MG TAB PO SCH (17:55)
[2024-07-31] MEDS: Carvedilol 6.25 MG TAB PO SCH (08:25)
[2024-07-31] MEDS: Amlodipine 5 MG TAB PO SCH (08:25)
[2024-07-31 16:35] VITALS: BP 155/88; TEMP 98.8
== END 2024-07-31 17:01 | disposition home health service (06) | DRG 871 ==
LOC: ERS 07:51 → ERHOLD 09:38 → 2NO 16:57 → T4-B 07-29 14:51
PROVIDERS: ADMIT Internal Medicine; ATTEND Hospitalist
DX: A41.9 Sepsis, unspecified organism (principal); J18.9 Pneumonia, unspecified organism; J96.01 Acute respiratory failure with hypoxia; R65.20 Severe sepsis without septic shock; I10 Essential (primary) hypertension; N40.0 Benign prostatic hyperplasia without lower urinary tract symptoms; E87.6 Hypokalemia; E83.42 Hypomagnesemia; E11.9 Type 2 diabetes mellitus without complications; E78.5 Hyperlipidemia, unspecified; Z85.46 Personal history of malignant neoplasm of prostate; Z79.84 Long term (current) use of oral hypoglycemic drugs; F41.9 Anxiety disorder, unspecified; Z93.3 Colostomy status; Z79.899 Other long term (current) drug therapy
CPT/HCPCS: 36415; 36416; 71045; 80048; 80053; 83605; 83735; 84100; 84145; 84484; 85025; 85610; 85730; 93005; 93306; 94640; 94760; 99285; J0456; J0696; J1650; J1815; J3475; J7050; J7620; J7626